=== PATIENT | male | born 1935 | race Caucasian/White ===

== ENCOUNTER 2020-02-28 11:01 | Emergency (ER) | payer OTHER ==
[~2020-02-28] VITALS: Ht 165.1 cm; Wt 54.0 kg
[~2020-02-28 11:01] MED LIST: LAC PO; LEVAQUIN750 MG PO
[2020-02-28 11:14] VITALS: Ht 165.1 cm; Wt 54.0 kg
[2020-02-28 12:38] LABS: BASOPHIL % 1.2 % (0-2); PLATELET COUNT 286 x10^3mcL (130-400); RED CELL DISTRIBUTION WIDTH 15.1 % (11.5-14.5)
[2020-02-28 12:54] LABS: CALCIUM 8.6 mg/dL (8.5-10.1); CARBON DIOXIDE 26.1 mmol/L (21-32); CHLORIDE SERUM 102 mmol/L (98-107); CREATININE SERUM 0.8 mg/dL (0.7-1.3); GLUCOSE SERUM 99 mg/dL (74-106); POTASSIUM SERUM 5.1 mmol/L (3.5-5.1); SODIUM SERUM 137 mmol/L (136-145)
[2020-02-28 12:58] LABS: ALBUMIN 3.3 g/dL (3.4-5.0); ALKALINE PHOSPHATASE 77 U/L (46-116); ALT/SGPT 16 U/L (16-63); AST/SGOT 29 U/L (15-37); BILIRUBIN TOTAL 0.5 mg/dL (0.20-1.00); LIPASE 111 IU/L (73-393); TOTAL PROTEIN, SERUM 7.1 g/dL (6.4-8.2)
[2020-02-28 13:39] VITALS: BP 140/51
== END 2020-02-28 13:39 | disposition home or self-care (01) ==
LOC: ED 11:01
PROVIDERS: Emergency Medicine
DX: R10.31 Right lower quadrant pain (principal)
CPT/HCPCS: Q0092

== ENCOUNTER 2020-03-26 10:20 | Emergency (ER) | payer OTHER ==
[~2020-03-26] VITALS: Ht 165.1 cm; Wt 51.7 kg
[2020-03-26 10:36] VITALS: Ht 165.1 cm; Wt 51.7 kg
[2020-03-26 12:25] LABS: BASOPHIL % 0.7 % (0-2); PLATELET COUNT 192 x10^3mcL (130-400); RED CELL DISTRIBUTION WIDTH 13.7 % (11.5-14.5)
[2020-03-26 12:41] LABS: CALCIUM 8.5 mg/dL (8.5-10.1); CARBON DIOXIDE 26.4 mmol/L (21-32); CHLORIDE SERUM 105 mmol/L (98-107); CREATININE SERUM 0.9 mg/dL (0.7-1.3); GLUCOSE SERUM 91 mg/dL (74-106); POTASSIUM SERUM 4.2 mmol/L (3.5-5.1); SODIUM SERUM 142 mmol/L (136-145)
[2020-03-26 12:46] LABS: ALKALINE PHOSPHATASE 75 U/L (46-116); ALT/SGPT 12 U/L (16-63); AST/SGOT 10 U/L (15-37); BILIRUBIN TOTAL 0.49 mg/dL (0.20-1.00); LIPASE 61 IU/L (73-393); TOTAL PROTEIN, SERUM 6.6 g/dL (6.4-8.2)
[2020-03-26 12:48] LABS: ALBUMIN 2.9 g/dL (3.4-5.0)
[2020-03-26 14:10] VITALS: BP 130/53
== END 2020-03-26 14:10 | disposition home or self-care (01) ==
LOC: ED 10:20
PROVIDERS: Student in an Organized Health Care Education/Training Program
DX: R10.11 Right upper quadrant pain (principal)
CPT/HCPCS: Q0162